=== PATIENT | male | born 1965 | race Two or more races ===

== ENCOUNTER 2016-12-15 08:55 | Outpatient (CLI) | payer BC ==
[~2016-12-15] VITALS: Ht 172.7 cm; Wt 83.9 kg
[~2016-12-15 08:55] MED LIST: BUPR150T3 PO; CLAR5TAB PO; CRES5TAB PO; GLIM2TAB PO; INSUDET SC; METF10004 PO; NS 1,000 ML IV ONE; RAMI10CA PO
[2016-12-15] MEDS ORDERED: PROPOFOL 200 MG/20 ML VIAL As Ordered ONE (10:08)
[2016-12-15] MEDS ORDERED: LIDOCAINE 2% INJ 100 MG/5 ML SDV (FOR ANES.) As Ordered ONE (10:08)
--- NOTE | 2016-12-15 10:13 | ROOR ---
Patient Name: Quang Grace Procedure Date: 12/15/2016 9:49 AM Date of : 1965 Age: 51 Room: [facility] Gender: Male Note Status: Finalized Procedure: Total Colonoscopy to Cecum Indications: Screening for colorectal malignant neoplasm Providers: Hector Franklin MD Referring MD: PAVAN DINERO JR, MD Requesting Provider: Medicines: Monitored Anesthesia Care Complications: No immediate complications. Procedure: Pre-Anesthesia Assessment: - The heart rate, respiratory rate, oxygen saturations, blood pressure, adequacy of pulmonary ventilation, and response to care were monitored throughout the procedure. The Colonoscope was introduced through the anus and advanced to the cecum, identified by appendiceal orifice and ileocecal valve. The colonoscopy was performed without difficulty. The patient tolerated the procedure well. The quality of the bowel preparation was unsatisfactory. Findings: The perianal and digital rectal examinations were normal. A large amount of stool was found in the entire colon, interfering with visualization. The exam was otherwise without abnormality on direct and retroflexion views. Impression: - Preparation of the colon was unsatisfactory. - Stool in the entire examined colon. - The examination was otherwise normal on direct and retroflexion views. - No specimens collected. - The exam was otherwise normal to the cecum. Recommendation: - Patient has a contact number available for emergencies. The signs and symptoms of potential delayed complications were discussed with the patient. Return to normal activities tomorrow. Written discharge instructions were provided to the patient. - Resume previous diet. - Discharge patient to home. - Continue present medications. - Repeat colonoscopy at appointment to be scheduled because the bowel preparation was suboptimal. - Return to referring physician. - The findings and recommendations were discussed with the patient's family. Hector Franklin MD Hector Franklin MD 12/15/2016 10:12:44 AM This report has been signed electronically. Number of Addenda: 0 Note Initiated On: 12/15/2016 9:49 AM Estimated Blood Loss: Estimated blood loss: none.
[2016-12-15 10:41] VITALS: BP 123/80
== END 2016-12-15 10:42 | disposition home or self-care (01) ==
LOC: M OPP 08:55
PROVIDERS: ATTEND Internal Medicine Gastroenterology
DX: Z12.11 Encounter for screening for malignant neoplasm of colon (principal); I10 Essential (primary) hypertension; E78.5 Hyperlipidemia, unspecified; E10.9 Type 1 diabetes mellitus without complications; F41.9 Anxiety disorder, unspecified; Z79.899 Other long term (current) drug therapy

== ENCOUNTER → 2016-12-29 | Outpatient (CLI) | payer OTHER ==
[~2016-12-29] MED LIST changes: -NS 1,000 ML IV ONE
--- NOTE | 2016-12-29 14:25 | REP ---
Clinical: Trauma. Technique: AP, lateral, bilateral oblique views right second digit . Findings: The osseous structures and joint spaces are intact and normal. There is no evidence for acute fracture or dislocation. Surrounding soft tissues are unremarkable. No subcutaneous emphysema or radiodense foreign body. Impression: Age-related changes . No acute fracture or dislocation. Signed by Juarez Bridges MD 12/29/2016 02:16 P
== END ==
LOC: M LRY 13:41
PROVIDERS: ATTEND Nurse Practitioner Family
DX: S69.91XA Unspecified injury of right wrist, hand and finger(s), initial encounter (principal); X58.XXXA Exposure to other specified factors, initial encounter; Y93.9 Activity, unspecified; Y92.9 Unspecified place or not applicable; Y99.8 Other external cause status